=== PATIENT | male | born 1955 | race Caucasian/White ===

== ENCOUNTER 2018-03-21 11:37 | Emergency (ER) | payer MEDICAID ==
[~2018-03-21] VITALS: Ht 170.2 cm; Wt 79.0 kg
[2018-03-21] MEDS ORDERED: LIDOCAINE HCL/PF 1% 10 MG/ML 5ML VIAL IJ ONE (12:15)
[2018-03-21] MEDS ORDERED: TETANUS, DIPHTHERIA, PERTUSSIS VAC/PF 0.5ML (>7YR OLD) IM ONE (12:15)
[2018-03-21] MEDS ORDERED: BACITRACIN ZINC OINT UDPKT TOP ONE (12:15)
[2018-03-21] MEDS ORDERED: IBUPROFEN 600MG TABLET PO ONE (12:15)
[2018-03-21 15:43] VITALS: BP 110/80
== END 2018-03-21 15:44 | disposition home or self-care (01) ==
LOC: ER 13:22
DX: S61.217A Laceration without foreign body of left little finger without damage to nail, initial encounter (principal); W26.8XXA Contact with other sharp object(s), not elsewhere classified, initial encounter; Y93.89 Activity, other specified; Y92.89 Other specified places as the place of occurrence of the external cause; Z23 Encounter for immunization
CPT/HCPCS: 12002; 73140; 90471; 90715; 99283; J3490